=== PATIENT | female | born 1940 ===

== ENCOUNTER 2025-04-20 14:55 | Outpatient (AMB) | payer MEDICARE, OTHER, SELFPAY ==
[2025-04-20 15:07] VITALS: BMI 30.7
--- NOTE | 2025-04-20 15:07 | A.PHYSOV ---
Vital Signs 04/20/25 15:07 Height 5 ft 6 in Weight 190 lb BMI 30.7 Intake Visit Reasons: Right sided sciatica Intake Note: Patient is a 84 year old female here for right sided sciatica. 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 The patient reports that the right knee pain is due to osteoarthritis, confirmed by x-rays showing [id number] contact. The patient previously underwent a gel injection in the knee with [facility], which was not successful due to complications during administration. The patient has been using meloxicam and lidocaine cream for pain management, but reports needing to take these more frequently than prescribed due to persistent pain. 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 The patient has a history of receiving injections for this condition, which provided temporary relief. Patient has a pain level today of 7/10. Pain Description - Onset: Chronic pain in the right knee and lower back - Quality: Described as severe, persistent pain - Location: Right knee and radiating down the thigh and wilson - Exacerbating factors: Ineffective gel injection, inadequate pain relief from current medications - Relieving factors: Previous injections provided temporary relief Procedure: Right L4 TFESI 03/03/2024 80% reduction of her pain Right knee cortisone injection 08/12/2024 Right knee cortisone injection 04/20/2025 [facility], [facility] Surgical History (Updated 04/20/25 @ 15:09 by Xi Torres MA) H/O hernia repair H/O breast surgery Social History (Updated 04/20/25 @ 15:11 by Xi Torres MA) Alcohol intake: current Alcohol intake frequency: does not drink Patient Tobacco Use Status: Never used Tobacco Review of Systems Narrative Review of Systems - Musculoskeletal: Reports chronic pain in the right knee and lower back - Neurological: Reports pain radiating down the thigh and wilson Physical Exam Exam Exam: Physical Exam Lumbar Spine: Examination of her lumbar spine, there is no visible swelling or deformity. She is tender to right lower lumbar facets. She is otherwise nontender. Full range of motion of lumbar spine with pain. She does have an increase in pain with facet loading. Special Tests: Lhermittes sign was negative Heel Toe walk is normal Left straight leg raise: Negative Right straight leg raise: Positive right Special tests Phillip test is negative Ganslen's test is negative SI Joint compression test negative Antonio test negative Piriformis stretch is negative Lower Extremities: Examination of her right knee, there is no effusion or deformity. She is tender to the medial joint line. She has full range of motion of the knee in flexion-extension. Her ligaments are intact. Negative James test. Her calf is soft and nontender. Neuro: Sensation: Intact to lower extremities bilaterally Strength L2 (Psoas): 5/5 on the left and 5/5 on the right. L3 (Quads): 5/5 on the left and 5/5 on the right. L4 (Ant tibialis): 5/5 on the left and 5/5 on the right. L5 (EHL) 5/5 on the left and 5/5 on the right. S1 (Gastroc): 5/5 on the left and 5/5 on the right. DTR L4: (Patellar) Left 2 Right 1 S1: (Achilles) Left 0 Right 0 Babinski Downgoing No pathologic clonus. No involuntary movement. Vital Signs: BMI result Body Mass Index 30.7 Office Procedures AMB Knee Injection AMB Knee Injection Procedure Details: Right Knee injection: The risks, benefits and complications of the right knee injection were discussed with the patient including but not limited to increased serum glucose, infection, nerve pain, fat atrophy, pigment augmentation, bleeding and pain. All questions were answered to the patient's satisfaction. Verbal consent was obtained. The patient was eager to proceed. Using aseptic technique with Betadine, ethyl chloride was then used to desensitize the skin. Using a 22-gauge needle 40 mg of Kenalog and 3 mL 2% lidocaine were injected into the knee joint. A Band-Aid was applied. Patient tolerated the procedure well without immediate complication. Postinjection instructions were given. Knee Injection - : Right All charges added?: Procedure code (CPT) selection complete Office Meds Kenalog 40 mg/mL suspension for injection Performing Provider: LINN Kovacs Performing Location: [facility] [place] [facility] Administered by: LINN Kovacs on 04/20/25 17:16 Dose Route Admin Location Dispensed Lot Number Expiration Date [facility] Tea Room Manager 40 mg intra-articular 1 mL [address]-8 [employer] Total Dispensed Waste 1 mL 0 % lidocaine (PF) 20 mg/mL (2 %) injection solution Performing Provider: LINN Kovacs Performing Location: [facility] Administered by: LINN Kovacs on 04/20/25 17:16 Dose Route Admin Location Dispensed Lot Number Expiration Date [facility] Tea Room Manager 60 mg intra-articular 50 mL [id number] Total Dispensed Waste 50 mL 0 % Assessment & Plan Assessment & Plan (1) Osteoarthritis of right knee: Code(s): M17.11 - Unilateral primary osteoarthritis, right knee Category: Medical Qualifiers: Osteoarthritis type: primary Qualified Code(s): M17.11 - Unilateral primary osteoarthritis, right knee (2) Lumbar radiculopathy: Code(s): M54.16 - Radiculopathy, lumbar region Category: Medical Plan Pain Management - Affect: Pain significantly impacts daily activities and quality of life - Analgesia: Currently using meloxicam and lidocaine cream, with limited effectiveness - Adverse Effects: No specific adverse effects reported from medications - Activities of Daily Living: Pain interferes with mobility and daily tasks - Aberrant Drug Related Behaviors: No aberrant behaviors reported Plan Patient was informed and verbally consented to the use of an ambient scribe for clinic note documentation during this visit. 1. Osteoarthritis Of The Right Knee The plan includes administering a cortisone injection to the right knee today to alleviate pain and inflammation. The patient will be monitored for response to the injection, and further treatment options will be considered based on effectiveness. According to the patient she is not a surgical candidate for total knee replacement secondary to advanced age. 2. Neuroforaminal Stenosis At L4-5 A cortisone epidural injection injection is planned for the spine to address the pain associated with neuroforaminal stenosis. 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 Patient was educated about the risks, complications and benefits of epidural injection and she is eager to proceed. The procedure will be scheduled at a later date, and the patient will be informed once authorization is obtained. She will continue low-impact activities such as walking, biking and swimming. Orders: Orders AMB Knee Injection Today M17.11 - Unilateral primary osteoarthritis, right knee Referrals Physiatry Procedure Notification M54.16 - Radiculopathy, lumbar region Coding Level of Care Code Tele Est Pt Level 4 (90579) Diagnoses Primary osteoarthritis of right knee M17.11 Osteoarthritis type: primary Lumbar radiculopathy M54.16 CPT Codes AMB Knee Injection - Hip/Bursa Injection - 57666: Right ([id number])
--- OUTSIDE RECORDS SUMMARY | 2025-04-20 18:40 | XMS_ITS | Data Portability ---
Author Organization [place] - [facility],, SONI DAWKINS MD Address [address] [facility] [address] [place] [address] Care Team Providers Care Fur Cutting Machine Operator Name Role Phone FRANCIE SMALL Primary Care Provider [phone] Assessment No assessment recorded. Plan of Treatment Reminders Order Date Submit Date Provider Last Modified By Organization Details Last Modified Time Details Appointments None recorded. Lab pap test, thinprep, cervical 2023 024 [place] [facility] (Centralized Electronic Ordering - All Locations), Patient Can Go To The Location Of Their Choice, [id number] 4 07:47:10 pap test, thinprep, cervical 2022 023 [facility] (Centralized Electronic Ordering - All Locations), Patient Can Go To The Location Of Their Choice, [address] 3 08:32:37 biopsy, endometri al 2021 022 [email or web address] [facility], Cytopathology Service, [address] [place], [address], 09:16:10 Referral None recorded. Procedures biopsy, endometri um (PROC) 2021 022 [email or web address] Not available 07:37:59 Surgeries None recorded. Imaging MAMMO, screening , digital, bilateral - Breast Aspiratio n and/or Biopsy if needed 2023 024 [facility] [address] [place], [address], 5 07:18:58 bone density 2023 024 [facility] (Central Scheduling Radiology), [address] [place] [address], [address], 5 07:45:20 MAMMO, screening , digital, bilateral 2022 023 [facility] (Central Scheduling Radiology), [address] [place] [address], [address], 4 07:33:05 bone density 2022 023 [facility] (Central Scheduling Radiology), [address] [place] [address], [address], 4 07:33:05 Medication Orders cephalexi n 500 mg capsule 2024 025 [facility]acy #0950, [address] [place] [address], [address], 5 13:36:22 triamcino lone acetonide 0.1 % topical ointment 2024 025 [facility]/Pharmacy #0950, [address] [place], [address], 5 13:36:22 estradiol 0.01% (0.1 mg/gram) vaginal cream 2022 023 [facility]/Pharmacy #0950, [address] [place], [address], 3 13:57:37 triamcino lone acetonide 0.1 % topical ointment 2022 023 [facility]/Pharmacy #0950, [address] [place] [address], [address], 3 13:58:46 triamcino lone acetonide 0.1 % topical ointment 2021 022 [email or web address] 1 [facility], [address] [place], [address], 13:17:32 triamcino lone acetonide 0.5 % topical ointment 2021 022 [place] 1 [facility], [address] [place], [address], 13:17:31 Patient TargetsNo targets recorded. Patient Instructions Encounter Date Encounter Id Patient Instructions Last Modified By Organization Details Last Modified Time 01/01/2022 [id number] This visit is a phone telehealth visit. The patient consented to the visit by phone. The patient was at home at the time of the call and the provider and patient were the only people on the line. I was at [address] [place] [address], [address], [place], [place], at the time of the call. She was recently hospitalized, and as part of her work up a pelvic sonogram was done. It shows a 1.2 cm, heterogeneous endometrium wiht cystic spaces and vascularity. She has had no pelvic cramping, no spotting. She had breast cancer in 2008, never took Tamoxifen or Arimidex. She also requests a refill on her Aristocort for her symptomatic lichen sclerosis. We discussed all this and she agrees to return for emb to assess the endometrium. She is entirely asymptomatic, however she could have endometrial hyperplasia, or outright cancer. We discussed that if she has cancer we would refer her to [facility] onc[facility] for hysterectomy, we discussed minimally invasive surgery, and the typical intra-op and post-op course. All questions answered. The patient was agreeable to this plan. She is aware of the limitations caused by the covid restrictions, and this phone call, but was appreciative of the efforts to complete the evaluation. Face to face discussion 30 minutes Not available 01/01/2022 13:00:24 01/22/2022 [id number] postmenopausal bleeding information Not available 01/22/2022 14:39:09 endometrial biopsy: about this test Not available 01/22/2022 14:39:09 She was recently hospitalized, and as part of her work up a pelvic sonogram was done. It shows a 1.2 cm, heterogeneous endometrium wiht cystic spaces and vascularity. She has had no pelvic cramping, no spotting. She had breast cancer in 2008, never took Tamoxifen or Arimidex. She is here for emb. She took an oxycodone prior, and her friend drove her. Her cervix was closed/ stenotic, but opened easily with pressure, and approximately 10 cc of clear, thick, viscous mucous came out under pressure. The abnormal finding on sonogram may have bene this abundant mucous, await biopsy. Not available 01/22/2022 14:41:12 05/31/2022 [id number] advance beneficiary notice information Not available 05/31/2022 13:57:33 advance care planning for heart failure: care instructions Not available 05/31/2022 13:57:33 irritable bowel syndrome: care instructions Not available 05/31/2022 15:40:36 atrophic vaginitis: care instructions Not available 05/31/2022 13:57:33 learning about healthy weight Not available 05/31/2022 13:57:33 She is here for annual exam, past history right breast cancer, doing well but has been having cramping midline pain which we believed due to small hematometra, noted on sonogram, however she feels it is due to colitis and is seeing a gi specialist soon. She had an emb attempt here and her cervix was stenotic, so she had an attempt at D and DC under anesthesia at hospital but also they could not get in. She wanted to proceed with hysterectomy so she was referred out however she saw Dr. Christopher and they decided to try D and C again, however then she felt Dr. Christopher was using me a a guinea pig so she is not going to do that. [facility], she is considering that at this time. She arrived wiht 4 pages of questions, all answered. MRI breasts 11/15, mammo 05/16 both negative. note from 2020: She is here for annual exam, gets annual breast MRI for high risk screening, is set up for a week from now, she notes. Past history right breast cancer and RTx. Her cat is doing well! We again discussed at length her cervical stenosis, all questions answered. She states that she has a past history of IBS./ colitis. All of her written issues were discussed ot her satisfaction over a 25 minute face to face discussion. She appears to be doing well. Monthly self breast exam was taught, and stressed, and is advised to call if she discovers any new mass in the breast. Not available 05/31/2022 15:40:16 07/01/2023 [id number] advance beneficiary notice information Not available 07/01/2023 10:41:02 advance care planning for heart failure: care instructions Not available 07/01/2023 10:41:02 atrophic vaginitis: care instructions Not available 07/01/2023 10:41:02 learning about healthy weight Not available 07/01/2023 10:41:02 She is here for annual, doing well. She had the D and C again attempted however they also could not get into the canal. She was advised to have a hysterectomy as the endometrium cannot be assessed, however she declines. She is aware that if she has a cancer then it may progress too far to be adequqtely treated if she does not have hysterectomy. But she declines surgery. note from 2022: She is here for annual exam, past history right breast cancer, doing well but has been having cramping midline pain which we believed due to small hematometra, noted on sonogram, however she feels it is due to colitis and is seeing a gi specialist soon. She had an emb attempt here and her cervix was stenotic, so she had an attempt at D and DC under anesthesia at hospital but also they could not get in. She wanted to proceed with hysterectomy so she was referred out however she saw Dr. Christopher and they decided to try D and C again, however then she felt Dr. Christopher was using me a a guinea pig so she is not going to do that. She was referred to [facility] at her request for surgery, she is considering that at this time. She arrived wiht 4 pages of questions, all answered. MRI breasts 11/15, mammo 05/16 both negative. She appears to be doing well. Monthly self breast exam was taught, and stressed, and is advised to call if she discovers any new mass in the breast. [facility] Not available 07/01/2023 10:39:47 06/29/2024 [id number] atrophic vaginitis: care instructions [facility] Not available 06/29/2024 13:36:21 lichen sclerosis [email or web address] Not available 06/29/2024 13:36:21 She is here for a painful and enlarging infection in the vulva. on exam: 1.5 cm abscess of a prior sebaceous cyst, lower left labial fold, mild induration There is lichen sclerosis in a butterfly distribution around the introitus to 20% of the vulva, and the mercer of the clitoris is co apted. With gentle digital pressure the cyst is opened and abundant purulent material, 1 to 2 cc, is expressed. After this it is clean. Rx keflex for now, and warm soaks advised. Also she requests rx aristocort for her lichen sclerosis, she has bene using OTC aveeno lotion which is not helping. Call if it does not resolve fully [facility] Not available 06/29/2024 13:39:05 Reason for Referral None Reported. Results Created Date Observation Date Name Description Value Unit Range Abnormal Flag Note LastModifiedBy Organization Detail LastModifiedTime 01/23/20 22 01/22/2022 SURGI CALCA SE surgicalcase Endom etria l biops y: - BENIG N ENDOC ERVIX - NO ENDOM ETRIU M IDENT IFIED Belkis Torres M.D. , Patho logis t (Case elect rola seals sasha d 01 24 2022) Pre-O p/Cli nical Diagn osis: THICK ENED ENDOM ETRIU M POSTM ENOPA USAL BLEED ING ICD-1 0: N95.0 : POSTM ENOPA USAL BLEED ING Speci men and Site: ENDOM ETRIU M-BIO PSY Gross Descr iptio n: Label ed endo metri al biops y . Recei shaan in forma joelle is a 3.0 x 2.1 x 0.3 [address] ag[address] gate of blood -stre aked mucoi d mater ial and blood clot, which is wrapp ed in paper and submi tted in toto in one casse tte, multi ple piece s, x2. TS Physi cians : KARINE RUIZ M.D./ [phone] Not Available [facility], Cytopathology Service [address] [place], [address], 01/24/2022 14:15:20 05/31/19 23 05/31/2022 [facility] CYTOL OGY results Patie nt Name: JASON REYNAGA nt : [id number] (Age: 81) Lab Acces galo #: [id number] Colle ction Date: 023 Acces galo Date: 023 Sign Out Date: 2022 Tissu e Sourc e: 1: THINP REP STORE RECEIVER PAP TEST, CERVI LEWIS: Final Diagn osis: NEGAT JOLIE FOR INTRA EPITH ELIAL LESIO N OR VON MENARD . Satis facto ry for evalu ation . Endoc ervic al/tr ansfo rmati on zone ABSEN T. Clini lewis Histo ry: Date of Last Menst rual Perio d: not avail able Menst rual Histo ry: Post- menop ausal Contr acept jolie Histo ry: not avail able Ancil rudy Testi ng: HPV (ASCU S) Case image d by the ThinP rep Imagi ng Syste m with richard celester kun g or dave morales. Perfo rmed at [facility] ate Refer ence Labor atory depar tment of Cytol ogy, [address] [place] Clini lewis Histo ry (othe r): Z91.8 9, LPS 03/21 negat jolie, routi ne scree n Phone #: [phone], On-Ca ll Patho logis t: [id number] Not Available [facility] (Centralized Electronic Ordering - All Locations) Patient Can Go To The Location Of Their Choice, [id number] 06/14/2022 13:26:36 07/01/19 24 07/01/2023 [facility] CYTOL OGY results Patitamara nt Name: JASON REYNAGA : [id number] (Age: 82) Lab Acces galo #: [id number] Colle ction Date: Acces galo Date: 024 Sign Out Date: Tissu e Sourc e: 1: THINP REP STORE RECEIVER PAP TEST, CERVI LEWIS: Final Diagn osis: NEGAT JOLIE FOR INTRA EPITH ELIAL LESIO N OR MALIG DERIAN . Satis facto ry for evalu ation . Endoc ervic al/tr ansfo rmati on zone ABSEN T. Clini lewis Histo ry: Date of Last Menst rual Perio d: not avail able Menst rual Histo ry: not avail able Contr acept jolie Histo ry: not avail able Ancil rudy Testi ng: HPV (ASCU S) Case image d by the ThinP rep Imagi ng Syste m with richard hidalgo rescr kun chaney or dave morales. Perfo rmed at [facility] ate Refer ence Labor atory depar tment of Cytol ogy, [address] [place] Clini lewis Histo ry (othe r): X91.8 9, 05/31 NILM HPV NEG HX BR CAB, HIGH RISK Phone #: [phone], On-Ca ll Patho logis t: [id number] Not Available [facility] (Centralized Electronic Ordering - All Locations) Patient Can Go To The Location Of Their Choice, [address] 07/05/2023 15:02:59 02/24/2002/23/2022 US, pelvi s, trans abdom inal + trans vagin al No observ ation record ed. [email or web address] [address], [address], 02/26/2022 10:27:41 02/24/20 22 02/23/2022 US, pelvi s, trans abdom inal + trans vagin al No observ ation record ed. [facility] [address], [place], [address], 02/26/2022 09:42:57 05/31/19 23 02/23/2022 US, pelvi s, trans abdom inal + trans vagin al No observ ation record ed. [email or web address] [facility] (Med Rec) [address], [place], [address], 05/31/2022 10:45:14 12/27/19 23 12/26/2022 MRI, breas t, bilat eral, w/wo contr ast No observ ation record ed. [facility] Diagnosit Imaging Dept [address] [place], [address], 12/27/2022 08:50:59 06/17/19 24 06/17/2023 MAMMO , scree cherri, digit al, bilat eral No observ ation record ed. Diagnosit Imaging Dept [address] [place], [address], 06/17/2023 14:42:58 Result Notes None recorded. 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 Not Available [facility] 23:40:39 Family history of breast cancer 866982005 Active Her sister, , who was also BRCA negative Not Available [facility] 23:40:39 Anxiety 37322408 Active Not Available [facility] 23:40:39 Endometri osis Active Not Available [facility] 23:40:39 Personal history of primary malignant neoplasm of breast 026133900 Active She is BRCA negative Not Available [facility] 2 23:40:39 Primary hyperchol esterolem ia 436488498 Active Not Available [facility] 2 23:40:39 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 Procedures Surgical History Date Name Laterality Status Provider Name and Address Organization Details Recorded Time 4 Most Recent Mammogram completed [facility], 07/01/2023 10:10:35 3 dilation of cervical canal completed [facility], 07/01/2023 10:09:57 2 Endometrial Biopsy completed Soni Dawkins MD [address] [facility],[address], [place], [address], [place] - [facility], 01/22/2022 14:40:49 9 Xcapsl ctrc rmvl cplx wo ecp completed Debo [facility], 03/19/2019 13:53:09 5 Other completed [facility], 01/03/2015 10:19:08 3 Other completed [facility], 04/01/2014 14:51:00 9 Breast Biopsy completed [facility], 04/01/2014 14:51:00 8 Other completed Kena Katie MART[place] - [facility], 01/03/2015 10:20:44 Imaging Results None recorded. Procedure Notes None recorded. Medical Equipment None Reported. Allergies No known drug allergies Medications Name Sig Start Date Stop Date Status Note LastModified by Organization Details LastModified Time fluoxetine 40 mg capsule TAKE 1 CAPSULE BY MOUTH EVERY DAY active Not Available Not Available No t Available amoxicillin 500 mg capsule TAKE 1 CAPSULE BY MOUTH EVERY 8 HOURS FOR 10 DAYS 11/21 completed Not Available Not Available Not Available latanoprost 0.005 % eye drops INSTILL 1 DROP INTO BOTH EYES EVERY DAY AT BEDTIME active Not Available Not Available No t Available fluconazole 100 mg tablet 01/16 completed Not Available Not Available Not Available acetaminoph en 325 mg tablet TAKE 1 TABLET EVERY 4 HOURS NEEDED active Not Available Not Available No t Available prednisone 10 mg tablet TAKE 3 TABS DAILY FOR 3 DAYS, 2 TABS DAILY FOR 3 DAYS, THEN TAKE 1 TAB DAILY FOR 3 DAYS, THEN STOP 06/29 completed Not Available Not Available Not Available Monistat 3 200 mg/5 gram (4 %) vaginal cream USE 1 APPLICATI ON VAGINALLY AT BEDTIME 01/01 completed Not Available Not Available Not Available atorvastati n 20 mg tablet TAKE 1 TABLET BY MOUTH EVERY DAY active Not Available Not Available No t Available ofloxacin 0.3 % eye drops 03/19 completed Not Available Not Available Not Available fluconazole 150 mg tablet TAKE 1 TABLET BY MOUTH AT BEDTIME 05/31 completed Not Available Not Available Not Available hydrocortis one valerate 0.2 % topical cream active Not Available Not Available Not Available hydrocodone 5 mg-acetamin ophen 325 mg tablet TAKE 1 TABLET BY MOUTH FOUR TIMES A DAY FOR 7 DAYS 06/29 completed Not Available Not Available Not Available hydrocortis one 1 % topical ointment APPLY A THIN LAYER TO AFFECTED AREA 3 TIMES A DAY FOR 3 DAYS active Not Available Not Available No t Available phenazopyri dine 200 mg tablet active Not Available Not Available Not Available ondansetron HCl 4 mg tablet TAKE 1 TABLET BY MOUTH EVERY 8 HOURS NEEDED FOR NAUSEA FOR UP TO 7 DAYS. active Not Available Not Available No t Available prednisone 20 mg tablet TAKE 2 TABS ONCE DAILY X 5 DAYS WITH FOOD 06/29 completed Not Available Not Available Not Available triamcinolo ne acetonide 0.5 % topical ointment APPLY 1 APPLICATI ON TOPICALLY TWICE A DAY 2021 active Not Available Not Available Not Avai lable sulfamethox azole 800 mg-trimetho prim 160 mg tablet 03/19 completed Not Available Not Available Not Available omeprazole 40 mg capsule,del ayed release Take by oral route for 90 days. active Not Available Not Available No t Available tramadol 50 mg tablet 03/14 completed Not Available Not Available Not Available acetaminoph en 500 mg tablet TAKE 1 TABLET BY MOUTH EVERY 6 HOURS NEEDED FOR PAIN 06/29 completed Not Available Not Available Not Available ondansetron 8 mg disintegrat ing tablet TAKE 1 TABLET BY MOUTH EVERY 8 HOURS NEEDED FOR NAUSEA active Not Available Not Available No t Available pantoprazol e 20 mg tablet,zain yed release active Not Available Not Available Not Available ketorolac 0.5 % eye drops 03/19 completed Not Available Not Available Not Available meloxicam 7.5 mg tablet TAKE 1 TABLET BY MOUTH DAILY NEEDED PAIN , MODERATE 05/31 completed Not Available Not Available Not Available oxycodone-a cetaminophe n 5 mg-325 mg tablet active Not Available Not Available No t Available amoxicillin 875 mg tablet TAKE 1 TABLET BY MOUTH EVERY 12 HOURS FOR 10 DAYS 01/01 completed Not Available Not Available Not Available amitriptyli ne 10 mg tablet TAKE 1 TABLET BY MOUTH AT BEDTIME 01/16 completed Not Available Not Available Not Available phenazopyri dine 100 mg tablet TAKE 1 TABLET BY MOUTH 3 TIMES A DAY 01/16 completed Not Available Not Available Not Available prednisolon e sodium phosphate 1 % eye drops 03/19 completed Not Available Not Available Not Available cephalexin 500 mg capsule TAKE 1 CAPSULE BY MOUTH EVERY 8 HOURS FOR 7 DAYS active Not Available Not Available No t Available pantoprazol e 40 mg tablet,zain yed release TAKE 1 TABLET BY MOUTH DAILY FOR 180 DAYS, 30 MIN BEFORE BREAKFAST 06/29 completed Not Available Not Available Not Available acyclovir 5 % topical ointment active Not Available Not Available Not Available triamcinolo ne acetonide 0.1 % topical ointment APPLY TOPICALLY TWICE A DAY NEEDED active Not Available Not Available No t Available clotrimazol e-betametha sone 1 %-0.05 % topical cream 03/18 completed Not Available Not Available Not Available bupropion HCl 75 mg tablet 03/19 completed Not Available Not Available Not Available nystatin-tr iamcinolone 100,000 unit/g-0.1 % topical cream APPLY TO AFFECTED AREA TWICE A DAY FOR 7 DAYS 01/16 completed Not Available Not Available Not Available Advil 200 mg tablet Take 1 tablet every 6 hours by oral route. active Not Available Not Available No t Available omeprazole 20 mg capsule,del ayed release TAKE ONE CAPSULE BY MOUTH EVERY DAY 10/17 completed Not Available Not Available Not Available etodolac 400 mg tablet TAKE 1 TABLET BY MOUTH TWICE A DAY 03/14 completed Not Available Not Available Not Available hydroxyzine HCl 25 mg tablet TAKE 1 TABLET BY MOUTH THREE TIMES A DAY NEEDED FOR ANXIETY FOR UP TO 360 DAYS active Not Available Not Available No t Available bisacodyl 5 mg tablet,zain yed release TAKE 2 TABS AT 6PM DIRECTED. active Not Available Not Available No t Available gabapentin 100 mg capsule TAKE 2 CAPSULES BY MOUTH 3 TIMES A DAY active Not Available Not Available No t Available ibuprofen 600 mg tablet TAKE 1 TABLET BY MOUTH EVERY 6 HOURS NEEDED FOR PAIN active Not Available Not Available No t Available estradiol 0.01% (0.1 mg/gram) vaginal cream APPLY 0.5GRAMS VAGINALLY NIGHTLY FOR TWO WEEKS, THEN SATURDAY, SATURDAY , SATURDAY THEREAFTE R active Not Available Not Available No t Available letrozole 2.5 mg tablet 01/01 completed Not Available Not Available Not Available ondansetron 4 mg disintegrat ing tablet DISSOLVE 1 TABLET IN MOUTH EVERY 8 HOURS 03/14 completed Not Available Not Available Not Available fluoxetine 20 mg capsule TAKE 3 CAPSULES BY MOUTH EVERY DAY 05/31 completed Not Available Not Available Not Available amoxicillin 875 mg-potassiu m clavulanate 125 mg tablet active Not Available Not Available Not Available oxycodone 5 mg tablet 05/31 completed Not Available Not Available Not Available bupropion HCl XL 150 mg 24 hr tablet, extended release active Not Available Not Available Not Available Florastor 250 mg capsule TAKE ONE CAPSULE TWICE A DAY active Not Available Not Available No t Available nitrofurant oin monohydrate /macrocryst als 100 mg capsule TAKE 1 CAPSULE BY MOUTH TWICE A DAY FOR 7 DAYS 01/01 completed Not Available Not Available Not Available Advil 03/18 completed Not Available Not Available Not Available fiber active Not Available Not Availa ble Not Available Miralax every day active Not Available Not Av ailable Not Available GaviLyte-G 236 gram-22.74 gram-6.74 gram-5.86 gram oral solution PLEASE SEE ATTACHED FOR DETAILED DIRECTION S active Not Available Not Available No t Available Vagifem 10 mcg vaginal tablet active Not Available Not Available Not Available Probiotic 03/18 completed Not Available Not Available Not Available lidocaine 5 % topical ointment active Not Available Not Available Not Available Fluzone High-Dose 1484-2009 (PF) 180 mcg/0.5 mL intramuscul ar syringe TO BE ADMINISTE RED BY PHARMACIS T FOR IMMUNIZAT ION active Not Available Not Available No t Available Aspercreme (lidocaine) 4 % topical patch 03/18 completed Not Available Not Available Not Available Vitals Date Recorded Body height Body mass index (BMI) Body weight Heart rate Systolic And Diastolic Provider Name and Address Organization Details Last Updated DateTime 05/31/2022 165.1 cm 28.9 kg/m2 93065.64 g 57 /min 178/76 mm[Hg] [facility], 05/31/2022 13:31:21 Date Recorded Body height Body mass index (BMI) Body weight Body temperature Heart rate Systolic And Diastolic Provider Name and Address Organization Details Last Updated DateTime 165.1 cm 30.3 kg/m2 37241.8 1 g 97.2 [degF] 96 /min 179/75 mm[Hg] [facility], 13:23:40 Date Recorded Body height Body mass index (BMI) Body weight Heart rate Systolic And Diastolic Provider Name and Address Organization Details Last Updated DateTime 07/01/2023 165.1 cm 30.3 kg/m2 42917.81 g 86 /min 147/67 mm[Hg] Kena Lopez in [facility], 07/01/2023 10:05:55 Date Recorded Body height Provider Name an d Address Organization Details Last Updated DateTime 01/01/2022 165.1 cm Kalli Carpetner MA - [facility] in [facility], 01/01/2022 11:31:16 Date Recorded Body height Body mass index (BMI) Body weight Heart rate Systolic And Diastolic Provider Name and Address Organization Details Last Updated DateTime 01/22/2022 165.1 cm 31.1 kg/m2 07157.77 g 89 /min 134/67 mm[Hg] Kalli Carpenter MA - [facility], 01/22/2022 14:18:00 Social History Question Answer Notes LastModified by Organizat ion Details LastModified Time Tobacco Smoking Status Never Smoker Not Available [facility] 03/29/2020 03:19:39 What Is Your Level Of Caffeine Consumption? None [id number] Information not available 03/29/2020 In The 14 Days Before Symptom Onset, Have You Had Close Contact With A Laboratory-confirm ed COVID-19 While That Case Was Ill? No Information n ot available 03/21/2021 In The 14 Days Before Symptom Onset, Have You Had Close Contact With A Person Who Is Under Investigation For COVID-19 While That Person Was Ill? No Information not available 03/21/2021 Have You Been To An Area Known To Be High Risk For COVID-19? No Information not available 03/21/2021 What Type Of Diet Are You Following? REGULAR [id number] Information n ot available 03/29/2020 Which Illicit Or Recreational Drugs Have You Used? No [id number] Information not available 03/29/2020 Do You Reside In Or Have You Traveled To An Area Where Ebola Virus Transmission Is Active? No [id number] Information not available 03/29/2020 Education Post Graduate Information not available 04/01/2014 What Is The Highest Grade Or Level Of School You Have Completed Or The Highest Degree You Have Received? [id number] Information not available 03/21/2021 How Many Days In The Past Year Have You Had A Heavy Drinking Consumption (4+ Female, 5+ Male)? 0 Information no t available 01/17/2016 Are There Any Guns Present In Your Home? No Information not available 03/21/2021 High Number Of Sexual Partners No Information not available 01/17/2016 To Which Gender Do You Self-identify? Female Information n ot available 01/17/2016 Marital Status [email or web address] Informatio n not available 04/01/2014 What Was The Date Of Your Most Recent Tobacco Screening? 06/29/2024 Information not available 06/29/2024 What Is Your Relationship Status? Information not available 03/21/2021 Are You Sexually Active? No [id number] Information not available 03/29/2020 How Much Tobacco Do You Smoke? No [id number] Information not available 03/29/2020 General Stress Level Medium Information not available 03/18/2018 How Many Years Have You Smoked Tobacco? 0 [id number] Information not available 03/29/2020 Have You Recently (within The Last 12 Weeks, Or During A Current ) Traveled To Or Lived In A Zika-affected Area? No Information not available 01/17/2016 Sex: Female Functional Status Question Answer Note LastModified by Organizat ion Details LastModified Time Do you use any illicit or recreational drugs? No Information not available 03/21/2021 What is your level of alcohol consumption? None [id number] Information not available 03/29/2020 Do you or have you ever used smokeless tobacco? Never used smokeless tobacco [id number] Information not available 03/29/2020 Are you currently employed? 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 Never used electronic cigarettes [id number] Information not available 03/29/2020 What is your exercise level? Occasional [id number] Information not available 03/29/2020 Mental Status Question Answer Note LastModified by Organization D etails LastModified Time Do you feel stressed (tense, restless, nervous, or anxious, or unable to sleep at night)? [id number] Information not available 03/21/2021 Family History Relationship Description Onset Age of this Age Resolved Age Notes LastModified by Organization Details LastModified Time Sister Malignant neoplasm of breast Not available 01/25 15:06:31 Mother Malignant neoplasm of breast Not available 01/25 15:06:31 Maternal Grandmother Malignant neoplasm of breast Not available 01/25 15:06:31 Medical History Condition Response Anesthesia complications N High Blood Pressure N Candidate for MyRisk panel Y Thyroid Problems N Kidney or Bladder Problems N GI Problems Y Lung Disease N Depression Y Defects or Inherited Disease N History of Ovarian Cancer Y Anemia N History of Breast Cancer Y ILYA exposure N BRCA testing in past Y Osteopenia Y Psychiatric Illness N Anxiety Disorder Y Diabetes N Arthritis Y Headaches or Migraines Y Infertility N Asthma N History of Cancer Y Endometriosis N Hepatitis N Heart Disease N Hypertension N Osteoporosis Y Gynecological History Statement/Question Response If Post Menopausal, Age at Menopause 44 Most Recent Bone Density Menses Monthly N Age at Menarche 15 Most Recent Mammogram 06/05/2023 Age at First Child 2 Hormone Replacement Therapy N Obstetrics History GPAL:G 1 P 0 0 1 0 Type Value Full Term 0 Spontaneous 1 Living 0 Total 1 Immunizations Vaccine Type Date Status Note Provider Nam e and Address Organization Details Recorded Time influenza, unspecified formulation 5 completed Kena Hankwjuliann toro MA Roselyn Lopez in [facility], 07/01/2023 10:06:35 Influenza, split virus, quadrivalent, preservative 6 completed Kena Meczywjuliann toro MA - Jessica in [facility], 07/01/2023 10:06:35 Influenza, split virus, quadrivalent, preservative 7 completed Kena Meczywor null MA - [facility] in [facility], 07/01/2023 10:06:35 Influenza, split virus, quadrivalent, preservative 8 completed Kena Meczywor null [place] - [facility], 07/01/2023 10:06:35 Influenza, split virus, quadrivalent, preservative 0 completed Kena Meczywor muna MA - [facility], 07/01/2023 10:06:35 Influenza, adjuvanted, quadrivalent, PF 1 completed Kena Meczywor null, [place] - [facility], 07/01/2023 10:06:35 COVID-19, mRNA, LNP-S, PF, 100 mcg/0.5mL dose or 50 mcg/0.25mL dose 1 completed Kena Meczywor null, [place] - [facility], 07/01/2023 10:06:35 Influenza, recombinant, quadrivalent, PF 9 completed Kena Meczywor null, [place] - [facility], 07/01/2023 10:06:35 pneumococcal, unspecified formulation 2 completed Kena Meczywor null, [place] - [facility], 07/01/2023 10:06:35 Influenza, split virus, trivalent, preservative 4 completed Kena Meczywor null, [place] - [facility], 07/01/2023 10:06:35 COVID-19, mRNA, LNP-S, PF, 100 mcg/0.5mL dose or 50 mcg/0.25mL dose 1 completed Kena Meczywor null, [place] - [facility], 07/01/2023 10:06:35 COVID-19, mRNA, LNP-S, PF, 100 mcg/0.5mL dose or 50 mcg/0.25mL dose 1 completed Kena Meczywor null, [place] - [facility], 07/01/2023 10:06:35 COVID-19, mRNA, LNP-S, bivalent, PF, 50 mcg/0.5 mL or 25mcg/0.25 mL dose 2 completed Kena Meczywor null, [place] - [facility], 07/01/2023 10:06:35 Influenza, high-dose, quadrivalent, PF 2 completed Kena Meczywor null, [place] - [facility], 06/29/2024 13:22:54 Tdap 2 completed Kena JaegerVERONICA mosher in [facility], 06/29/2024 13:22:54 Past Encounters Encounter ID Performer Location Encounter Start Date Encounter Closed Date Diagnosis/Indication Diagnosis SNOMED-CT Code Diagnosis ICD10 Code Diagnosis IMO Codes Diagnosis Note [id number] MD SONI Weiss MD [address] [place] [address],[address] [place] [address] 04/01/2014 14:22:08 04/02/2014 09:05:19 Candidal vulvovaginitis 95858350 Atrophic vaginitis 49631582 Menopausal syndrome 793686211 [id number] MD SONI Weiss MD [address] [place] [address],[address] [place] [address] 05/03/2014 10:28:41 05/03/2014 12:00:09 Atrophic vaginitis 37082509 [id number] MD SONI Weiss MD [address] [place] [address],[address] [place] [address] 01/03/2015 09:48:39 01/03/2015 12:10:33 History of clinical finding in subject 003115353 Screening mammography 75942039 Atrophic vaginitis 42193075 [id number] MD SONI Weiss MD [address] [place] [address],[address] [place] [address] 02/03/2015 13:39:12 02/03/2015 15:29:19 Candidal vulvovaginitis 88779241 Chemically -induced proctitis 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 [id number] MD SONI Weiss MD [address] [place] [address],[address] [place] [address] 01/17/2016 10:03:24 01/17/2016 13:08:54 History of clinical finding in subject 179825772 Z91.89 Screening mammography 24 420610 Z12.31 Atrophic vaginitis 03748 000 N95.2 Candidal vulvovaginitis 78634258 B37.3 Personal h istory of primary malignant neoplasm of breast 311231471 Z85.3 [id number] MD SONI Weiss MD [address] [place] [address] 03/14/2017 13:45:58 03/14/2017 16:02:05 History of clinical finding in subject 457069888 Z91.89 Screening mammography 24 960297 Z12.31 Personal h istory of primary malignant neoplasm of breast 882496449 Z85.3 Menopausal syndrome 1237 66057 N95.9 Atrophic vaginitis 25659 000 N95.2 Abnormal weight gain 161 165305 R63.5 Cares for self 778578884 Z76.89 Fatigue 34199167 R53.83 [id number] MD SONI Weiss MD [address] [place] [address] 03/18/2018 13:31:19 03/18/2018 15:01:18 Screening for malignant neoplasm of cervix 509725065 Z12.4 Screening mammography 24 737661 Z12.31 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 Personal h istory of primary malignant neoplasm of breast 780568546 Z85.3 [id number] MD SONI Weiss MD [address] [place] [address] 03/19/2019 13:41:00 03/19/2019 15:50:42 Screening for malignant neoplasm of cervix 461203641 Z12.4 Screening mammography 24 843387 Z12.31 Screening for osteoporosis 641310384 Z13.820 At high [place] for malignant neoplasm of breast 9066673591 30312 Z91.89 [id number] MD SONI Weiss MD [address] [place] [address] 03/21/2020 13:34:49 03/21/2020 15:26:21 History of clinical finding in subject 147820088 Z91.89 Screening mammography 24 540734 Z12.31 Advance care planning 71 3701783 Z71.89 Screening for osteoporosis 343375037 Z13.820 At high ri sk for malignant neoplasm of breast 3348216372 45705 Z91.89 [id number] MD SONI Weiss MD [address] [place], [place] [address] [address] 07/02/2020 08:16:41 07/02/2020 12:17:01 Administration of viral vaccine 39426303 Z23 [id number] MD SONI Weiss MD [address] [place], [place] [address] [address] 07/30/2020 08:15:45 07/30/2020 09:03:31 Administration of viral vaccine 71243304 Z23 [id number] MD SONI Weiss MD [address] [place], [place] [address] [address] 03/21/2021 13:17:43 03/21/2021 14:01:57 History of clinical finding in subject 188414285 Z91.89 Screening mammography 24 920849 Z12.31 Advance care planning 71 8015416 Z71.89 Screening for osteoporosis 018617619 N95.8 Personal h istory of primary malignant neoplasm of breast 526076345 Z85.3 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 [id number] MD SONI Weiss MD [address] [place], [place] [address] [address] 10/17/2021 09:35:29 10/17/2021 12:55:49 Dysuria 51859985 R30.0 [id number] MD SONI Weiss MD [address] [place], [place] [address] [address] 11/03/2021 10:41:13 11/03/2021 12:01:47 Dysuria 15425596 R30.0 Candidal vulvovaginitis 25793258 B37.3 Vulvitis 06872191 N76.2 [id number] MD SONI Weiss MD [address] [place], [place] [address] [address] 11/21/2021 12:47:58 11/21/2021 13:40:35 Dysuria 19733068 R30.0 Candidal vulvovaginitis 13892373 B37.3 Recurrent urinary tract infection 434680479 N39.0 Atrophic vaginitis 16025 000 N95.2 [id number] MD SONI Weiss MD [address] [place], [place] [address] [place] [address] 01/01/2022 11:27:17 01/01/2022 14:05:15 Personal history of primary malignant neoplasm of breast 744261657 Z85.3 Genital li sorto sclerosus 123142448 L90.0 Endometrium thickened 44 7047171 R93.89 [id number] MD SONI Weiss MD [address] [place] [address] [place] [address] 01/22/2022 14:11:49 01/22/2022 14:48:55 Postmenopausal bleeding 91354491 N95.0 [id number] MD SONI Weiss MD [address] [place], [place] [address] [address] 05/31/2022 13:16:43 05/31/2022 15:55:05 Atrophic vaginitis 85295304 N95.2 History of clinical finding in subject 901505970 Z91.89 Screening mammography 24 317946 Z12.31 Advance care planning 71 3618311 Z71.89 Screening for osteoporosis 670487291 N95.8 Genital li sorto sclerosus 247549648 L90.0 Personal h istory of primary malignant neoplasm of breast 707651846 Z85.3 Irritable bowel syndrome 16016551 K58.9 [id number] MD SONI Weiss MD [address] [place], [place] [address] [address] 07/01/2023 09:47:44 07/01/2023 13:49:53 History of clinical finding in subject 199883454 Z91.89 Screening mammography 24 256497 Z12.31 Advance care planning 71 7531847 Z71.89 Screening for osteoporosis 318786464 N95.8 [id number] MD SONI Weiss MD [address] [place], [place] [address] [address] 06/29/2024 13:16:27 06/29/2024 15:49:45 Abscess of vulva 85236040 N76.4 Lichen scl erosus et atrophicus 91177270 L90.0 Health Concerns Section Related Observation LastModified by Organization Detai ls LastModified Time None Recorded Concern Status LastModified by Organization Details LastModified Time None Recorded Advance Directives Directive None Recorded Payers Insurance Date Sequence Insurance Name Policy Number Policy Calixto Covered Member ID Calixto Member ID Guarantor Name 07/11/2024 2 [facility] - MEDICARE EXTENSION (INDEMNITY) [id number] 2 Lauren Russo Ronnell [id number] Lauren Karan Ronnell 06/29/2024 1 MEDICARE B-[place]: [facility] [employer] Lauren Russo Ronnell [id number] Lauren Russo Ronnell Notes Date Note Type Note Provider Name and Address Organization Details Recorded Time 01/01/2022 text/html This visit is a phone telehealth visit. The patient consented to the visit by phone. The patient was at home at the time of the call and the provider and patient were the only people on the line. I was at [address] [place] [address], [address], [place], [place], at the time of the call. She was recently hospitalized,m and as part of her work up a pelvic sonogram was done. It shows a 1.2 cm, heterogeneous endometrium wiht cystic spaces and vascularity. She has had no pelvic cramping, no spotting. She had breast cancer in 2008, never took Tamoxifen or Arimidex. Soni Dawkins MD [address], [place], [address], [employer] - [facility], 01/01/2022 13:00:40 01/22/2022 text/html She was recently hospitalized, and as part of her work up a pelvic sonogram was done. It shows a 1.2 cm, heterogeneous endometrium wiht cystic spaces and vascularity.She has had no pelvic cramping, no spotting.She had breast cancer in 2008, never took Tamoxifen or Arimidex. She is here for emb. She took an oxycodone prior, and her friend drove her. Soni Dawkins MD [address], [place], [address], [employer] - [facility], 01/22/2022 14:41:25 05/31/2022 text/html She is here for annual exam, past history right breast cancer, doing well but has been having cramping midline pain which we believed due to small hematometra, noted on sonogram, however she feels it is due to colitis and is seeing a gi specialist soon. She had an emb attempt here and her cervix was stenotic, so she had an attempt at D and DC under anesthesia at hospital but also they could not get in. She wanted to proceed with hysterectomy so she was referred out however she saw Dr. Christopher and they decided to try D and C again, however then she felt Dr. Christopher was using me a a guinea pig so she is not going to do that. She was referred to [facility] at her request for surgery, she is considering that at this time. She arrived wiht 4 pages of questions, all answered. MRI breasts 11/15, mammo 05/16 both negative. note from 2020: She is here for annual exam, gets annual breast MRI for high risk screening, is set up for a week from now, she notes.Past history right breast cancer and RTx.Her cat is doing well! Soni Dawkins MD [address], [place], [address], [place] - [facility], 05/31/2022 15:40:40 07/01/2023 text/html She is here for annual, doing well. She had the D and C again attempted however they also could not get into the canal. She was advised to have a hysterectomy as the endometrium cannot be assessed, however she declines. She is aware that if she has a cancer then it may progress too far to be adequqtely treated if she does not have hysterectomy. But she declines surgery. note from 2022: She is here for annual exam, past history right breast cancer, doing well but has been having cramping midline pain which we believed due to small hematometra, noted on sonogram, however she feels it is due to colitis and is seeing a gi specialist soon.She had an emb attempt here and her cervix was stenotic, so she had an attempt at D and DC under anesthesia at hospital but also they could not get in. She wanted to proceed with hysterectomy so she was referred out however she saw Dr. Christopher and they decided to try D and C again, however then she felt Dr. Christopher was using me a a guinea pig so she is not going to do that. She was referred to [facility] at her request for surgery, she is considering that at this time.She arrived wiht 4 pages of questions, all answered.MRI breasts 11/15, mammo 05/16 both negative. Soni Dawkins MD [address], [place], [address], [place] - [facility], 07/01/2023 10:41:10 06/29/2024 text/html She is here for a painful and enlarging infection in the vulva. Soni Dawkins MD [address], [place], [address], [place] - [facility], 06/29/2024 13:39:19 OBGyn Episode No OBEpisode recorded.
--- OUTSIDE RECORDS SUMMARY | 2025-04-20 18:40 | XMS_ITS | Clinical Summary ---
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 07/27/19 23 Active calcium carbonate/vitam in D3 (CALCIUM 500 + D, D3, ORAL) Take 1 Tablet by mouth daily. 07/27/19 23 Active latanoprost (XALATAN) 0.005 % ophthalmic solution 1 Drop at bedtime. Active triamcinolone (KENALOG) 0.1 % ointment Apply topically nightly 30 g 1 09/24/19 25 Active lidocaine (XYLOCAINE) 5 % ointmentIndicat ions:Abscess of vulva APPLY TOPICALLY 2 (TWO) TIMES A DAY IF NEEDED FOR MILD PAIN. 35.44 g 10/13/19 25 Active estradioL (ESTRACE) 0.01 % (0.1 mg/gram) vaginal cream Apply 0.5 g nightly for two weeks, then MWF 42.5 g 11 10/29/19 25 Active gabapentin (NEURONTIN) 300 mg capsule Take 1 capsule (300 mg total) by mouth 3 (three) times a day. 90 each 5 11/03/19 25 025 Active cholecalciferol (Vitamin D3) 50 mcg (2,000 unit) tablet Take 1 tablet (2,000 Units total) by mouth 1 (one) time each day. 90 tablet 1 11/04/19 25 025 Active ondansetron (ZOFRAN) 4 mg tabletIndicatio ns:Anxiety disorder, unspecified type Take 1 tablet (4 mg total) by mouth every 8 (eight) hours if needed for nausea or vomiting. 21 tablet 3 12/25/19 25 Active hydrOXYzine HCL (ATARAX) 25 mg tabletIndicatio ns:Anxiety disorder, unspecified type TAKE 1 TABLET BY MOUTH THREE TIMES A DAY NEEDED FOR ANXIETY FOR UP TO 360 DAYS 60 tablet 3 01/19/20 25 Active FLUoxetine (PROzac) 40 mg capsule TAKE 1 CAPSULE BY MOUTH EVERY DAY 90 capsule 1 03/03/20 25 Active atorvastatin (LIPITOR) 20 mg tablet TAKE 1 TABLET BY MOUTH EVERY DAY 90 tablet 1 04/08/20 25 Active omeprazole (PriLOSEC) [address] capsule TAKE 1 CAPSULE BY MOUTH 1 TIME EACH DAY. 90 capsule 1 04/08/20 25 Active atorvastatin (LIPITOR) 20 mg tablet TAKE 1 TABLET BY MOUTH EVERY DAY 90 tablet 1 10/13/19 25 025 Discontinued omeprazole (PriLOSEC) [address] capsule Take 1 capsule (40 mg total) by mouth 1 (one) time each day. 90 capsule 1 10/22/19 25 025 Discontinued Active Problems Problem Noted Date Diagnosed Date History of breast cancer 09/23/2024 Assessment & Plan (09/23/2024 1:26 PM EDT): I ordered her mammo and asked her to schedule this and MRI 6 mos apart as recommended based on her history. Cervical stenosis (uterine cervix) 11/09/2022 Abnormal EKG 09/20/2022 Chronic midline low back pain without sciatica 0 07/26/2022 Vulvar burning 06/13/2022 Assessment & Plan (09/23/2024 1:56 PM EDT): Despite the diagnosis of LS listed in her chart, I again see no clinical signs of this. I explained that she should not use the triamcinolone more often than nightly and maybe not at all if it is not helping. I explained that she likely should restart the Estrace for atrophy. I also encouraged her to use a skin barrier regularly such as coconut oil or Vaseline. I also encouraged her to follow [facility] guidelines, stop using warm paper towels on the vulvar skin. She was in agreement. Breast CA ([facility] V24, [facility] V28) 04/24/2022 Carcinoma of the skin, basal cell 04/24/2022 Endometriosis 04/24/2022 GERD (gastroesophageal reflux disease) 2 Ischemic colitis ([facility] V24) 04/24/2022 Mixed hyperlipidemia 04/24/2022 Resolved Problems Problem Noted Date Diagnosed Date Resolved Date Postmenopausal bleeding 06/13/202208/27 Thickened endometrium 04/24/20222024 Overview (05/07/2024): Last Assessment & Plan: I counseled Lauren that in women who are asymptomatic, there is no indication to sample the endometrium in an incidentally noted thickened endometrium. I believe there has been some confusion given she did have bleeding. However, given her feeling that she likely had blood in her urine from UTI and not from vaginal bleeding, and with severe cervical stenosis, this may not have been uterine in origin. I counseled her that the options remain the same, and I reviewed them, including observation, CKC with hopes of being able to access the endometrium for biopsy, or hysterectomy. She opted at this time for observation, but agrees to let me know if she has any further bleeding in the future. Encounters Date Type Department Care Team Description 02/09/2025 1:15 PM EDT - 02/09/2025 11:59 PM EDT [facility] [address] [id number] Screening mammogram for breast cancer Discharge Disposition: Home or Self Care from Last 3 Months Immunizations Immunization Administration Dates Next Due Influenza trivalent, 0.5mL (Fluad) 65yo and olde r 03/10/2024 Pneumococcal conjugate 20 va lent (Prevnar 20, PCV 20) 2mo and older 03/10/2024,06/19/2023 Surgical History Surgery Date Site/Laterality Comments HERNIA REPAIR PROCEDURE: HISTORICAL HERNIA REPAIR/ING OTHER SURGICAL HISTORY 2012 PROCEDURE: LAPAROSCOPIC FUNDOPLASTY BREAST SURGERY 2009 Right PROCEDURE: VT UNLISTED PROCEDURE BREAST OTHER SURGICAL HISTORY 1999 Bilateral PROCEDURE: VT EXCISION MALIGNANT LESION F/E/E/N/L 0.5 CM/<; COMMENT: basal cell ca STEREOTACTIC CORE BIOPSY Medical History Medical History Date Comments Breast cancer in female ([facility] V24, [facility] V28) DX:Breast cancer in female ( HCC) Breast CA ([facility] V24, [facility] V28) 04/24/2022 DX:Breast CA (HCC) Breast CA ([facility]/HCC V24, [facility] V28) 04/24/2022 DX:Breast CA (HCC) Endometriosis 04/24/2022 DX:Endometriosis Carcinoma of the skin, basal cell 04/24/2022 DX:Carcinoma of the skin, basal cell GERD (gastroesophageal reflu x disease) 04/24/2022 DX:GERD (gastroesophageal re flux disease) Ischemic colitis ([facility] V24) 04/24/2022 D X:Ischemic colitis ([facility]) Mixed hyperlipidemia 04/24/2022 DX:Mixed hy perlipidemia Postmenopausal bleeding 06/13/2022 Thickened endometrium 04/24/2022 Last Asses sment & Plan: I counseled Lauren that in women who are asymptomatic, there is no indication to sample the endometrium in an incidentally noted thickened endometrium. I believe there has been some confusion given she did have bleeding. However, given her feeling that she likely had blood in her urine from UTI and not from vaginal bleeding, and with severe cervical stenosis, this may n Family History Medical History Relation Name Comments Breast cancer Maternal Grandmother Breast cancer Mother Heart attack Paternal Grandfather Breast cancer Sister Relation Name Status Comments Maternal Grandmother Mother Paternal Grandfather Sister Social History Tobacco Use Types Packs/Day Years Used Date Smoking Tobacco: Never Smokeless Tobacco: Never Alcohol Use Standard Drinks/Week Comments Never 0 (1 standard drink = 0.6 oz pur e alcohol) Comments No Sex and Gender Information Value Date Recorded Sex Assigned at Not on file Legal Sex Female 9:45 AM EST Gender Identity Not on file Sexual Orientation Not on file Obstetrics History * This document contains information received from the source organization and may not represent a complete record from that organization. Para Term AB IAB SAB Ectopic Multiple Livin g Live Births 1 Date Outcome GA Total Labor Labor/2nd/3rd Weight Sex Type Anes PTL Yolande A1 A5 Name Clin Last Filed Vital Signs Vital Sign Reading Time Taken Comments Blood Pressure 128/64 12/24/2024 1:24 PM EDT Pulse 85 12/24/2024 1:24 PM EDT Temperature - - Respiratory Rate 15 10/28/2024 11:25 AM EDT Oxygen Saturation 98% 12/24/2024 1:24 PM EDT Inhaled Oxygen Concentration - - Weight 81.6 kg (180 lb) 02/09/2025 2:03 PM EDT Height 167.6 cm (5' 6 ) 02/09/2025 2:03 PM EDT Body Mass Index 29.05 02/09/2025 2:03 PM EDT Plan of Treatment Upcoming Encounters Date Type Department Care Team (Late st Contact Info) Description 05/06/2025 1:30 PM EST Office Visit Internal Medicine - [address] [place] [address] Karen Morris MD [address] [place] [phone] Health Maintenance Due Date Last Done Comments Zoster Vaccines (1 of 2) 12/11/2007 10/16/2007 RSV Immunization Adult Patients (1 - 1-dose 75+ series) 2017 Osteoporosis Screening (Bone Density Screening) 04/24/2022 COVID-19 Vaccine ( season) 2025 03/15/2022, 04/28/2021, 07/30/2020, Additional history exists Influenza Vaccine (#1) 2025 , 06/06/2023, 03/08/2022, Additional history exists Falls Risk Assessment 11/02/2025 11/02/2024, 024 Medicare Annual Wellness Visit 11/02/2025 11/02/2024 Social Influencers of Health Screening 11/02/2025 11/02/2024 Cholesterol Screening (Lipid Panel) 11/02/2029 11/02/2024, 03/18/2023 DTaP,Tdap,and Td Vaccines (2 - Td or Tdap) 03/14/2032 03/14/2022 Pneumococcal Vaccine: 50+ Years Completed 03/10/2024, 06/19/2023, 10/06/2018, Additional history exists Depression Screening Completed 11/02/2024, 09/05/19 24 HIB Vaccines Aged Out No longer eligi ble based on patient's age to complete this topic HPV Vaccines Aged Out No longer eligi ble based on patient's age to complete this topic Hepatitis A Vaccines Aged Out No long er eligible based on patient's age to complete this topic Hepatitis B Vaccines Aged Out No long er eligible based on patient's age to complete this topic IPV Vaccines Aged Out No longer eligi ble based on patient's age to complete this topic MMR Vaccines Aged Out No longer eligi ble based on patient's age to complete this topic Meningococcal ACWY Vaccine Aged Out N o longer eligible based on patient's age to complete this topic Meningococcal B Vaccine Aged Out No l onger eligible based on patient's age to complete this topic RSV Immunization Patients Under 20 months Aged Out No longer eligible based on patient's age to complete this topic Varicella Vaccines Aged Out No longer eligible based on patient's age to complete this topic Procedures Procedure Name Priority Date/Time Associated Diagnosis Comments MG MAMMO DIGITAL SCREENING W JOSE BILAT Routine 02/09/2025 2:05 PM EDT Screening mammogram for breast cancer LIPID PANEL WITH REFLEX TO DIRECT LDL Routine 11/02/2024 3:33 PM EDT Medicare annual wellness visit, subsequent Mixed hyperlipidemia FALLS RISK ASSESSMENT Routine 03/10/2024 DEPRESSION SCREENING Routine 09/05/2023 from Last 3 Months or Most Recently Relevant to Health Maintenance Results * MG Mammo Digital Screening w Jose bilat (02/09/2025 2:05 PM EDT) Anatomical Region Laterality Modality Breast Bilateral Mammography 02/09/2025 3:46 PM EDT Impressions 02/10/2025 8:54 AM EDT Benign. BI-RADS CATEGORY: 2 - BENIGN RECOMMENDATION: Screening bilateral mammogram is recommended in 1 year. Mammo Location: [facility], [address] [place] [address], [id number], . -------- FINAL REPORT -------- Dictated By: Chandler Childers Dictated Date: 02/09/2025 15:46 ET Assigned Physician: Chandler Childers Reviewed and Electronically Signed By: Chandler Childers Signed Date: 02/10/2025 08:54 ET Workstation ID: [id number] Transcribed By: Self Edit Transcribed Date: 02/09/2025 15:46 ET Narrative 02/10/2025 8:54 AM EDT CLINICAL: 84 years old, Female, routine annual exam. COMPARISON: 06/17/2023 and 06/15/2022. TECHNIQUE: Bilateral MLO and CC views were obtained digitally with 3-D mammogram (digital breast tomosynthesis). Computer-aided detection was utilized in evaluation of this exam (CAD). FINDINGS: Multiple large benign dystrophic calcifications in both breasts. Post lumpectomy changes in the upper outer quadrant of the right breast and surgical clips in the right axilla consistent with an axillary otoniel dissection. Postbiopsy marker clip in the posterior left breast. No suspicious mass or architectural distortion. No suspicious calcification. There has been no significant change from prior exam(s). BREAST DENSITY: B - There are scattered areas of fibroglandular density. Procedure Note Chandler Childers MD - 02/10/2025 CLINICAL: 84 years old, Female, routine annual exam. COMPARISON: 06/17/2023 and 06/15/2022. TECHNIQUE: Bilateral MLO and CC views were obtained digitally with 3-Dmammogram (digital breast tomosynthesis). Computer-aided detection wasutilized in evaluation of this exam (CAD). FINDINGS: Multiple large benign dystrophic calcifications in both breasts.Post lumpectomy changes in the upper outer quadrant of the right breastand surgical clips in the right axilla consistent with an axillary nodaldissection. Postbiopsy marker clip in the posterior left breast. No suspicious mass or architectural distortion. No suspiciouscalcification. There has been no significant change from prior exam(s). BREAST DENSITY: B - There are scattered areas of fibroglandular density. IMPRESSION: Benign. BI-RADS CATEGORY: 2 - BENIGN RECOMMENDATION: Screening bilateral mammogram is recommended in 1 year. Mammo Location: [facility], [address] [place] [address], [id number], . -------- FINAL REPORT -------- Dictated By: Chandler Childers Dictated Date: 02/09/2025 15:46 ET Assigned Physician: Chandler Childers Reviewed and Electronically Signed By: Chandler Childers Signed Date: 02/10/2025 08:54 ET Workstation ID: [id number] Transcribed By: Self Edit Transcribed Date: 02/09/2025 15:46 ET us Ciarra Lockwood MD IMG BI PROCEDURES Final Res ult * (ABNORMAL) Lipid panel with reflex to direct LDL (11/02/2024 3:33 PM EDT) Cholesterol 205(H) 0 - 200 mg/dL LAB CHEMISTRY METHOD 11/02/2024 8:23 PM EDT [facility] Triglycerides 133 0 - 150 mg/dL LAB CHEMISTRY METHOD 11/02/2024 8:23 PM EDT [facility] HDL 69 >=40 mg/dL LAB CHEMISTRY METHOD 11/02/2024 8:23 PM EDT [facility] LDL Calculated 109(H) 0 - 100 mg/dL LAB CHEMISTRY METHOD 11/02/2024 8:23 PM T [facility] VLDL Cholesterol Alexis 26.6 mg/dL LAB CHEMISTRY METHOD 11/02/2024 8:23 PM EDT [facility] Non HDL Chol. (LDL+VLDL) 136 <145 mg/dL LAB CHEMISTRY METHOD 11/02/2024 8:23 PM EDT [facility] Chol/HDL Ratio 3.0 0.0 - 4.4 LAB CHEMISTRY METHOD 11/02/2024 8:23 PM [facility] Blood Venous blood specimen / Unknown Venipuncture / Unknown 11/02/2024 3:33 PM EDT 11/02/2024 3:33 PM EDT Karen Morris MD LAB BLOOD ORDERABLES Final Resul t [facility] ([facility]) [facility] [address] [place] [address], * Falls Risk Assessment (03/10/2024) Falls Risk Assessment abstracted Historical Provider HEALTH MAINTENANCE Final Result * Depression Screening (09/05/2023) Depression Screening abstracted Dayana Coley MD HEALTH MAINTENANCE Final Result from Last 3 Months or Most Recently Relevant to Health Maintenance Insurance MEDICARE [facility] [place] [id number] MEDICARE [facility] Advance Directives * Full Code - Confirmed (Latest Code Status on File) Date Activated Date Inactivated Comments 11/02/2024 3:09 PM This code statu s was ascertained in the following way: Code status discussion: discussion with patient To update the patient's code status, place a code status order. Do not modify or discontinue any currently active code status orders. Care Teams Forklift Truck Operator Relationship Specialty Start Date End Date Karen Morris MD [address] [place] [phone] PCP - General Internal Medicine 09/04/24
--- OUTSIDE RECORDS SUMMARY | 2025-04-20 18:40 | XMS_ITS ---
Author Name [facility] Organization Unknown Care Team Organization Name Specialty Phone Email Start Date End [facility] 01/13/2025
== END 2025-04-20 17:20 | disposition home or self-care (01) ==
LOC: HO.HPHYS 14:55
PROVIDERS: PCP Student in an Organized Health Care Education/Training Program; Visit Provider Physician Assistant
DX: M17.11 Unilateral primary osteoarthritis, right knee (principal); M54.16 Radiculopathy, lumbar region
CPT/HCPCS: 20610; 99214

== ENCOUNTER → 2025-04-20 14:55 | Outpatient (BNVA) | payer MEDICARE, OTHER, SELFPAY | PROVIDERS: PCP Student in an Organized Health Care Education/Training Program; Visit Provider Physician Assistant | DX: M17.11 Unilateral primary osteoarthritis, right knee (principal); M54.16 Radiculopathy, lumbar region | CPT/HCPCS: 20610; 99212; J2003; J3301 ==